=== PATIENT | female | born 1950 | race Caucasian/White ===

== ENCOUNTER 2021-01-08 08:08 | Outpatient (CLI) | payer MEDICARE ==
[2021-01-08] MEDS ORDERED: VITA1CAP7 PO (09:09)
[2021-01-08] MEDS ORDERED: CHOL10003 PO (09:09)
[2021-01-08] MEDS ORDERED: CLOB15CR TP (09:09)
[2021-01-08] MEDS ORDERED: FLUO40CR9 TP (09:09)
[2021-01-08] MEDS ORDERED: FENU500C PO (09:09)
[2021-01-08] MEDS ORDERED: MULT-449 PO (09:09)
== END 2021-01-08 23:59 | disposition home or self-care (01) ==
LOC: STAR 08:08
PROVIDERS: ATTEND Surgery
DX: Z02.9 Encounter for administrative examinations, unspecified (principal)

== ENCOUNTER 2021-01-14 08:08 | Observation (INO) | payer MEDICARE ==
[~2021-01-14] VITALS: Ht 167.6 cm; Wt 70.6 kg
[~2021-01-14 08:08] MED LIST: CHOL10003 PO; CLOB15CR TP; EPHEDRINE 50 MG/ML, 1ML IVPush PRN; FENTANYL PF 100 MCG/2ML IV PRN; FENU500C PO; FLUO40CR9 TP; HYDROmorphone 1 MG/ML, 1ML INJ IVPush PRN; LABETALOL 5MG/ML, 20ML IV PRN; MULT-449 PO; ONDANSETRON 2MG/ML, 2ML IVPush PRN; OXYcodone 5 MG/5 ML ORAL.SOL UDC PO PRN; PROMETHAZINE 25 MG/ML, 1ML IVPush PRN; VITA1CAP7 PO; hydrALAzine 20 MG/ML, 1ML IV PRN
[2021-01-14] MEDS ORDERED: BUPIVACAINE/PF 0.25% ONE (08:58)
[2021-01-14] MEDS ORDERED: LACTATED RINGERS 1,000 ML IV SCH (09:00)
[2021-01-14] MEDS ORDERED: CHLORHEXIDINE 15 ML UDC PO ONE (09:00)
[2021-01-14] MEDS ORDERED: ACETAMINOPHEN 500 MG TABLET PO ONE (09:00)
[2021-01-14] MEDS ORDERED: FENTANYL PF 100 MCG/2ML ONE ×2 (09:46→10:32)
[2021-01-14] MEDS ORDERED: PROPOFOL 10 MG/ML, 20ML ONE (09:49)
[2021-01-14] MEDS ORDERED: ROCURONIUM 10MG/ML,5ML ONE (09:49)
[2021-01-14] MEDS ORDERED: LIDOCAINE-MPF 2% ,5ML ONE ×2 (09:49→10:13)
[2021-01-14] MEDS ORDERED: SUCCINYLCHOLINE 20 MG/ML, 10ML ONE (09:49)
[2021-01-14] MEDS ORDERED: DEXAMETHASONE 4 MG/ML, 5ML ONE (09:49)
[2021-01-14] MEDS ORDERED: CEFAZOLIN 1,000 MG ONE ×2 (09:49→10:17)
[2021-01-14] MEDS ORDERED: ONDANSETRON 2MG/ML, 2ML ONE (09:49)
[2021-01-14] MEDS ORDERED: KETOROLAC 30 MG/1 ML ONE (10:13)
[2021-01-14] MEDS ORDERED: SUGAMMADEX 200 MG/2 ML IVPush ONE (10:13)
[2021-01-14] MEDS ORDERED: hydrALAzine 20 MG/ML, 1ML ONE (10:29)
[2021-01-14] MEDS ORDERED: HYDROmorphone 1 MG/ML, 1ML INJ ONE (11:35)
[2021-01-14] MEDS ORDERED: ACETAMINOPHEN 650 MG/20.3 ML UDC ONE (12:23)
[2021-01-14] MEDS ORDERED: OXYcodone 5 MG/5 ML ORAL.SOL UDC ONE (12:23)
[2021-01-14] MEDS ORDERED: ACETAMINOPHEN 650 MG/20.3 ML UDC PO ONE (13:00)
[2021-01-14 14:02] VITALS: BP 131/68
[2021-01-14] MEDS ORDERED: MORPHINE SULFATE 4 MG/ML, 1ML IVPush PRN (14:30)
[2021-01-14] MEDS: LACTATED RINGERS 1,000 ML IV SCH (14:30)
[2021-01-14] MEDS ORDERED: ENOXAPARIN 40 MG/0.4 ML SQ SCH (14:30)
[2021-01-14] MEDS ORDERED: ONDANSETRON 2MG/ML, 2ML IVPush PRN (14:30)
[2021-01-14] MEDS ORDERED: HYDROcodone/APAP 7.5-325MG/15ML UDC PO PRN (14:30)
[2021-01-14] MEDS ORDERED: KETOROLAC 30 MG/1 ML IV SCH (15:00)
[2021-01-14] MEDS: KETOROLAC 30 MG/1 ML IV SCH ×2 (15:24→22:15)
[2021-01-14 19:32] VITALS: BP 128/69
[2021-01-15] VITALS: BP 104/63
[2021-01-15] MEDS: LACTATED RINGERS 1,000 ML IV SCH ×2 (00:30→03:59)
[2021-01-15 03:43] VITALS: BP 105/60
[2021-01-15] MEDS: KETOROLAC 30 MG/1 ML IV SCH ×3 (03:55→14:26)
[2021-01-15] MEDS ORDERED: ENOXAPARIN 40 MG/0.4 ML SQ SCH (06:00)
[2021-01-15 06:33] VITALS: BP 121/71
[2021-01-15] MEDS ORDERED: HYDR15SO3 PO ×2 (13:31→13:55)
[2021-01-15 14:38] VITALS: BP 118/76
== END 2021-01-15 15:25 | disposition home or self-care (01) ==
LOC: OUT 08:08 → 4NE 13:20 → OUT 13:30 → 4NE 13:30 → DCLOUNGE 01-15 15:15
PROVIDERS: ADMIT Surgery; ATTEND Surgery
DX: K44.9 Diaphragmatic hernia without obstruction or gangrene (principal); Z20.822 Contact with and (suspected) exposure to COVID-19; K21.00 Gastro-esophageal reflux disease with esophagitis, without bleeding; Z79.899 Other long term (current) drug therapy
CPT/HCPCS: 43280; 47379; 88307; 88313; 93005; 96361; 96372; 96374; 96376; C1781; G0378; J0330; J0360; J0690; J1100; J1170; J1650; J1885; J2405; J2704; J3010; J3490; J7120; U0003

== ENCOUNTER 2021-03-15 10:00 | Outpatient (CLI) | payer MEDICARE ==
[~2021-03-15 10:00] MED LIST changes: -EPHEDRINE 50 MG/ML, 1ML IVPush PRN; -FENTANYL PF 100 MCG/2ML IV PRN; +HYDR15SO3 PO; -HYDROmorphone 1 MG/ML, 1ML INJ IVPush PRN; -LABETALOL 5MG/ML, 20ML IV PRN; -ONDANSETRON 2MG/ML, 2ML IVPush PRN; -OXYcodone 5 MG/5 ML ORAL.SOL UDC PO PRN; -PROMETHAZINE 25 MG/ML, 1ML IVPush PRN; -hydrALAzine 20 MG/ML, 1ML IV PRN
== END 2021-03-15 23:59 | disposition home or self-care (01) ==
LOC: RAD 10:00
PROVIDERS: ATTEND Surgery
DX: K44.9 Diaphragmatic hernia without obstruction or gangrene (principal); K21.9 Gastro-esophageal reflux disease without esophagitis
CPT/HCPCS: 74240